=== PATIENT | male | born 1980 | race Caucasian/White ===

== ENCOUNTER 2017-12-07 15:46 | Emergency (ER) | payer BC ==
[2017-12-07 17:06] VITALS: BP 127/81
--- NOTE | 2017-12-07 17:49 | UC ---
Throat Pain/Nasal Javier HPI - HPI Summary HPI Summary: Per software validation engineer "ONSET 1 MO AGO SINUS INFECTION, TODAY'S S/S ARE CHEST CONGESTION , UNRELIEVED COUGH, MODI, SINUS CONGESTION, TIRED." he has had sinus infections before and sx are similar. + asthma hx and using albuterol more frequently w/ good results. cough is productive. no known fevers - History of Current Complaint Chief Complaint: UCGeneralIllness Stated Complaint: UPPER RESP Time Seen by Provider: 12/07/17 17:15 Pain Intensity: 5 - Allergies/Home Medications Allergies/Adverse Reactions: Allergies Allergy/AdvReac Type Severity Reaction Status Date / Time pet dander, some trees Allergy Runny Nose Uncoded 12/07/17 16:57 Home Medications: Home Medications Levothyroxine TAB* [Synthroid TAB*] 50 mcg PO DAILY 12/07/17 [History Confirmed 12/07/17] PMH/Surg Hx/FS Hx/Imm Hx Previously Healthy: Yes Endocrine History: Thyroid Disease - Surgical History Surgical History: None - Family History Known Family History: Positive: Respiratory Disease - Social History Alcohol Use: Weekly Substance Use Type: None Smoking Status (MU): Never Smoked Tobacco Review of Systems Constitutional: Negative Skin: Negative Eyes: Negative ENT: Sinus Congestion, Sinus Pain/Tenderness Respiratory: Cough Cardiovascular: Negative Gastrointestinal: Negative Genitourinary: Negative Motor: Negative Neurovascular: Negative Musculoskeletal: Negative Neurological: Negative Psychological: Negative Is Patient Immunocompromised?: No All Other Systems Reviewed And Are Negative: Yes Physical Exam Triage Information Reviewed: Yes Appearance: Well-Appearing, No Pain Distress, Well-Nourished - no cough during encounter Vital Signs: Initial Vital Signs Temp 98.5 F 12/07/17 17:00 Pulse 68 12/07/17 17:00 Resp 12 12/07/17 17:00 BP 127/81 12/07/17 17:00 Pulse Ox 100 12/07/17 17:00 Vital Signs Reviewed: Yes Eye Exam: Normal ENT: Positive: Pharyngeal erythema - mild w/ + PND, no exudate., TMs normal, Sinus tenderness - B/l frontal and maxillary Neck exam: Normal Neck: Positive: Supple, Nontender, No Lymphadenopathy Respiratory Exam: Normal Respiratory: Positive: Lungs clear, Normal breath sounds, No respiratory distress, No accessory muscle use. Negative: Crackles, Rhonchi, Stridor, Wheezing Cardiovascular Exam: Normal Cardiovascular: Positive: RRR, No Murmur, Pulses Normal, Brisk Capillary Refill Abdominal Exam: Normal Abdomen Description: Positive: Nontender, Soft Musculoskeletal Exam: Normal Neurological Exam: Normal Psychological Exam: Normal Skin Exam: Normal Throat Pain/Nasal Course/Dx - Differential Dx/Diagnosis Differential Diagnosis/HQI/PQRI: Laryngitis, Sinusitis, Tonsillitis, URI Provider Diagnoses: sinusitis Discharge - Sign-Out/Discharge Documenting (check all that apply): Discharge - Discharge Plan Condition: Stable Disposition: HOME Prescriptions: Amoxicillin PO (*) [Amoxicillin 875 MG (*)] 875 mg PO BID #20 tab Patient Education Materials: Sinusitis (ED) Referrals: Na Redding MD [Primary Care Provider] - 1 Week Additional Instructions: Make sure to take a probiotic daily while on antibiotics to help prevent a potential complication of antibiotic use called c diff. Some well known brands that can be found OTC are florastor, align and Room health. Make sure to complete the entire prescription unless advised otherwise by your health care provider. - Billing Disposition and Condition Condition: STABLE Disposition: HOME
== END 2017-12-07 17:59 | disposition home or self-care (01) ==
LOC: UCCORT 15:46
DX: J32.9 Chronic sinusitis, unspecified (principal)
CPT/HCPCS: 99212; G0463